=== PATIENT | female | born 1955 | race Caucasian/White ===

== ENCOUNTER 2018-01-18 16:08 | Inpatient (IN) | payer OTHER ==
[~2018-01-18] VITALS: Ht 149.9 cm; Wt 48.5 kg
[2018-01-18 16:12] VITALS: Ht 149.9 cm; Wt 48.5 kg
[2018-01-18 17:17] LABS: BASOPHIL % 0.4 % (0-2); PLATELET COUNT 462 x10^3mcL (130-400)
[2018-01-18 17:30] LABS: CALCIUM 9.1 mg/dL (8.5-10.1); CARBON DIOXIDE 26.3 mmol/L (21-32); CHLORIDE SERUM 96 mmol/L (98-107); CREATININE SERUM 0.8 mg/dL (0.6-1.0); GFR1 > 60 mL/min; GLUCOSE SERUM 214 mg/dL (74-106); POTASSIUM SERUM 3.2 mmol/L (3.5-5.1); SODIUM SERUM 134 mmol/L (136-145)
[2018-01-18 17:43] LABS: ALBUMIN 4.1 g/dL (3.4-5.0); ALKALINE PHOSPHATASE 91 U/L (46-116); ALT/SGPT 8 U/L (14-59); AMYLASE 47 U/L (25-115); AST/SGOT 13 U/L (15-37); BILIRUBIN TOTAL 0.29 mg/dL (0.20-1.00); CHOLESTEROL 148 mg/dL (<200); HDL CHOLESTEROL 66 mg/dL (40-60); LIPASE 238 IU/L (73-393); T4(THYROXINE) 11.3 ug/dL (4.7-13.3)
[2018-01-18 18:16] LABS: UA SPECIFIC GRAVITY <=1.005 (1.005-1.035); microscopic required? YES; urine erythrocyte NEGATIVE (NEGATIVE)
[2018-01-18] MEDS ORDERED: METFORMIN HYD1000 M2 PO (18:33)
[2018-01-18] MEDS ORDERED: MICROZIDE12.5 MG PO (18:33)
[2018-01-18] MEDS ORDERED: GLU10XL PO (18:33)
[2018-01-18] MEDS ORDERED: NIFEDIPINE30 MG PO (18:34)
[2018-01-18 18:52] LABS: AMPHETAMINE QUAL UR NONE DETECTED (See below)
[2018-01-18 19:50] VITALS: BP 148/52
[2018-01-18 20:04] LABS: UA SPECIFIC GRAVITY <=1.005 (1.005-1.035); microscopic required? YES; urine erythrocyte NEGATIVE (NEGATIVE)
[2018-01-18 20:05] LABS: MAGNESIUM 2.3 mg/dL (1.8-2.4); PHOSPHOROUS 2.5 mg/dL (2.5-4.9)
[2018-01-18 20:06] LABS: CHOLESTEROL/HDL RATIO 2.3
[2018-01-18 20:11] LABS: T3 TOTAL 0.93 ng/mL
[2018-01-18 20:15] LABS: FREE T4 1.4 ng/dL (0.76-1.46); FREE THYROXINE INDEX 4.1 ug/dL (1.4-4.5); T4(THYROXINE) 11.6 ug/dL (4.7-13.3)
[2018-01-19 05:02] VITALS: BP 126/55
[2018-01-19 06:49] LABS: BASOPHIL % 0.1 % (0-2); RED CELL DISTRIBUTION WIDTH 13.8 % (11.5-14.5)
[2018-01-19 06:58] LABS: PLATELET COUNT 438 x10^3mcL (130-400)
[2018-01-19 07:34] LABS: CARBON DIOXIDE 27.5 mmol/L (21-32); CHLORIDE SERUM 100 mmol/L (98-107); CREATININE SERUM 0.6 mg/dL (0.6-1.0); GFR1 > 60 mL/min; GLUCOSE SERUM 112 mg/dL (74-106); PHOSPHOROUS 3.1 mg/dL (2.5-4.9); POTASSIUM SERUM 3.9 mmol/L (3.5-5.1); SODIUM SERUM 137 mmol/L (136-145)
[2018-01-19 09:25] VITALS: BP 141/62
[2018-01-19] MEDS ORDERED: GOOD NEIGHBOR P20 M2 PO (12:49)
[2018-01-19] MEDS ORDERED: GAS RELIEF 8080 MG PO (12:50)
[2018-01-19] MEDS ORDERED: LEVOFLOXACIN500 M1 PO ×2 (12:56→14:59)
[2018-01-19 13:16] VITALS: BP 141/62
[2018-01-19 14:20] VITALS: BP 145/62
[2018-01-19] MEDS ORDERED: MICROZIDE12.5 MG PO ×2 (15:05→15:07)
== END 2018-01-19 16:29 | disposition home or self-care (01) | DRG 243 ==
LOC: ED 16:08 → DU 18:51
PROVIDERS: Emergency Medicine; Family Medicine
DX: K21.9 Gastro-esophageal reflux disease without esophagitis (principal); N17.0 Acute kidney failure with tubular necrosis; E11.65 Type 2 diabetes mellitus with hyperglycemia; I11.9 Hypertensive heart disease without heart failure; N39.0 Urinary tract infection, site not specified; E87.6 Hypokalemia; D47.3 Essential (hemorrhagic) thrombocythemia; Z68.22 Body mass index [BMI] 22.0-22.9, adult; Z79.84 Long term (current) use of oral hypoglycemic drugs
CPT/HCPCS: 82962; 83880; 84439; 90732; J1956; J7030; Q0092

== ENCOUNTER 2018-01-20 15:57 | Emergency (ER) | payer OTHER ==
[~2018-01-20] VITALS: Ht 149.9 cm; Wt 49.0 kg
[~2018-01-20 15:57] MED LIST: GAS RELIEF 8080 MG PO; GLU10XL PO; GOOD NEIGHBOR P20 M2 PO; LEVOFLOXACIN500 M1 PO; METFORMIN HYD1000 M2 PO; MICROZIDE12.5 MG PO; NIFEDIPINE30 MG PO
[2018-01-20 16:02] VITALS: Ht 149.9 cm; Wt 49.0 kg
[2018-01-20 17:11] LABS: BASOPHIL % 0.2 % (0-2); RED CELL DISTRIBUTION WIDTH 13.7 % (11.5-14.5)
[2018-01-20 17:17] LABS: UA SPECIFIC GRAVITY <=1.005 (1.005-1.035); microscopic required? YES; urine erythrocyte NEGATIVE (NEGATIVE)
[2018-01-20 17:23] LABS: ALBUMIN 3.6 g/dL (3.4-5.0); ALKALINE PHOSPHATASE 70 U/L (46-116); ALT/SGPT 15 U/L (14-59); AST/SGOT 13 U/L (15-37); BILIRUBIN TOTAL 0.2 mg/dL (0.20-1.00); CALCIUM 8.3 mg/dL (8.5-10.1); CARBON DIOXIDE 27.1 mmol/L (21-32); CHLORIDE SERUM 100 mmol/L (98-107); CREATININE SERUM 0.6 mg/dL (0.6-1.0); GFR1 > 60 mL/min; PHOSPHOROUS 2.9 mg/dL (2.5-4.9); POTASSIUM SERUM 3.3 mmol/L (3.5-5.1); SODIUM SERUM 135 mmol/L (136-145); TOTAL PROTEIN, SERUM 7.3 g/dL (6.4-8.2)
[2018-01-20 17:24] LABS: PLATELET COUNT 418 x10^3mcL (130-400)
[2018-01-20 17:35] LABS: CHOLESTEROL 121 mg/dL (<200); HDL CHOLESTEROL 63 mg/dL (40-60)
[2018-01-20 17:36] LABS: GLUCOSE SERUM 59 mg/dL (74-106)
[2018-01-20 18:48] VITALS: BP 107/57
== END 2018-01-20 18:48 | disposition home or self-care (01) ==
LOC: ED 15:57
PROVIDERS: Emergency Medicine
DX: E16.2 Hypoglycemia, unspecified (principal); J70.5 Respiratory conditions due to smoke inhalation; I10 Essential (primary) hypertension; E78.00 Pure hypercholesterolemia, unspecified; E11.9 Type 2 diabetes mellitus without complications; Z86.73 Personal history of transient ischemic attack (TIA), and cerebral infarction without residual deficits; Z88.0 Allergy status to penicillin
CPT/HCPCS: 36415; 82962; Q0092

== ENCOUNTER 2018-01-26 18:42 | Inpatient (IN) | payer OTHER ==
[~2018-01-26] VITALS: Ht 149.9 cm; Wt 48.3 kg
[2018-01-26 18:50] VITALS: Ht 149.9 cm; Wt 48.3 kg
[2018-01-26 20:49] LABS: BASOPHIL % 0.4 % (0-2)
[2018-01-26 20:51] LABS: PLATELET COUNT 459 x10^3mcL (130-400)
[2018-01-26 20:57] LABS: ALBUMIN 3.7 g/dL (3.4-5.0); ALKALINE PHOSPHATASE 87 U/L (46-116); ALT/SGPT 20 U/L (14-59); AST/SGOT 17 U/L (15-37); BILIRUBIN TOTAL 0.3 mg/dL (0.20-1.00); CALCIUM 8.4 mg/dL (8.5-10.1); CARBON DIOXIDE 25.5 mmol/L (21-32); CHLORIDE SERUM 99 mmol/L (98-107); CREATININE SERUM 0.6 mg/dL (0.6-1.0); GFR1 > 60 mL/min; POTASSIUM SERUM 3.8 mmol/L (3.5-5.1); SODIUM SERUM 135 mmol/L (136-145); TOTAL PROTEIN, SERUM 7.6 g/dL (6.4-8.2)
[2018-01-26 20:59] LABS: GLUCOSE SERUM 42 mg/dL (74-106)
[2018-01-26] MEDS ORDERED: COZAAR100 MG PO (21:21)
[2018-01-26 21:31] LABS: UA SPECIFIC GRAVITY <=1.005 (1.005-1.035); microscopic required? YES; urine erythrocyte NEGATIVE (NEGATIVE)
[2018-01-26 22:49] VITALS: BP 155/64
[2018-01-26 23:05] LABS: UA SPECIFIC GRAVITY <=1.005 (1.005-1.035); microscopic required? YES; urine erythrocyte NEGATIVE (NEGATIVE)
[2018-01-26 23:19] LABS: CHOLESTEROL/HDL RATIO 2.5
[2018-01-26 23:25] LABS: FREE T4 1.13 ng/dL (0.76-1.46); FREE THYROXINE INDEX 3.2 ug/dL (1.4-4.5)
[2018-01-27 00:31] LABS: T3 TOTAL 1.1 ng/mL
[2018-01-27 02:14] LABS: CALCIUM 8.9 mg/dL (8.5-10.1); CARBON DIOXIDE 27.7 mmol/L (21-32); CHLORIDE SERUM 103 mmol/L (98-107); CREATININE SERUM 0.6 mg/dL (0.6-1.0); GFR1 > 60 mL/min; POTASSIUM SERUM 3.5 mmol/L (3.5-5.1); SODIUM SERUM 136 mmol/L (136-145)
[2018-01-27 02:16] LABS: GLUCOSE SERUM 54 mg/dL (74-106)
[2018-01-27 05:18] VITALS: BP 128/59
[2018-01-27 06:44] LABS: BASOPHIL % 0.3 % (0-2)
[2018-01-27 06:46] LABS: PLATELET COUNT 418 x10^3mcL (130-400)
[2018-01-27 07:26] LABS: CALCIUM 8.6 mg/dL (8.5-10.1); CARBON DIOXIDE 25.5 mmol/L (21-32); CHLORIDE SERUM 103 mmol/L (98-107); CREATININE SERUM 0.6 mg/dL (0.6-1.0); GFR1 > 60 mL/min; POTASSIUM SERUM 3.8 mmol/L (3.5-5.1); SODIUM SERUM 136 mmol/L (136-145)
[2018-01-27 07:45] LABS: GLUCOSE SERUM 55 mg/dL (74-106)
[2018-01-27 10:49] VITALS: BP 139/63
[2018-01-27 18:24] VITALS: BP 127/100
[2018-01-27 20:56] VITALS: BP 128/65
[2018-01-28 04:55] VITALS: BP 106/71
[2018-01-28 07:14] LABS: BASOPHIL % 0.4 % (0-2); RED CELL DISTRIBUTION WIDTH 13.5 % (11.5-14.5)
[2018-01-28 07:15] LABS: PLATELET COUNT 412 x10^3mcL (130-400)
[2018-01-28 07:19] LABS: CALCIUM 8.8 mg/dL (8.5-10.1); CARBON DIOXIDE 28.2 mmol/L (21-32); CHLORIDE SERUM 99 mmol/L (98-107); CREATININE SERUM 0.6 mg/dL (0.6-1.0); GFR1 > 60 mL/min; GLUCOSE SERUM 123 mg/dL (74-106); POTASSIUM SERUM 3.7 mmol/L (3.5-5.1); SODIUM SERUM 130 mmol/L (136-145)
[2018-01-28] MEDS ORDERED: LEVOTHYROXINE0.05 M2 PO (09:05)
[2018-01-28 12:51] VITALS: BP 148/68
[2018-01-28] MEDS ORDERED: NOR10 PO (15:48)
[2018-01-28] MEDS ORDERED: LIPI10 PO (15:48)
[2018-01-28] MEDS ORDERED: LEVAQUIN500 M1 PO (15:49)
[2018-01-28] MEDS ORDERED: BAY PO (15:49)
[2018-01-28 16:06] VITALS: BP 148/68
== END 2018-01-28 19:16 | disposition home or self-care (01) | DRG 282 ==
LOC: ED 18:42 → DU 21:51 → MU 21:51 → DU 22:31 → MU 22:34 → DU 01-27 00:07
PROVIDERS: Emergency Medicine; Internal Medicine
DX: K85.90 Acute pancreatitis without necrosis or infection, unspecified (principal); G92 Toxic encephalopathy; E11.649 Type 2 diabetes mellitus with hypoglycemia without coma; E11.51 Type 2 diabetes mellitus with diabetic peripheral angiopathy without gangrene; I10 Essential (primary) hypertension; N39.0 Urinary tract infection, site not specified; D47.3 Essential (hemorrhagic) thrombocythemia; E78.5 Hyperlipidemia, unspecified; Z68.21 Body mass index [BMI] 21.0-21.9, adult; Z79.84 Long term (current) use of oral hypoglycemic drugs; Z86.73 Personal history of transient ischemic attack (TIA), and cerebral infarction without residual deficits; Z91.14 Patient's other noncompliance with medication regimen; T38.3X5A Adverse effect of insulin and oral hypoglycemic [antidiabetic] drugs, initial encounter; Y92.018 Other place in single-family (private) house as the place of occurrence of the external cause; Z88.0 Allergy status to penicillin; E78.00 Pure hypercholesterolemia, unspecified; Z83.6 Family history of other diseases of the respiratory system; I70.209 Unspecified atherosclerosis of native arteries of extremities, unspecified extremity
CPT/HCPCS: 82962; 84439; J1815; J1956; J3490; J7042; Q0092

== ENCOUNTER 2018-12-09 15:15 | Emergency (ER) | payer OTHER ==
[~2018-12-09] VITALS: Ht 152.4 cm; Wt 53.5 kg
[~2018-12-09 15:15] MED LIST changes: +BAY PO; +COZAAR100 MG PO; +LEVAQUIN500 M1 PO; +LEVOTHYROXINE0.05 M2 PO; +LIPI10 PO; +NOR10 PO
[2018-12-09 15:22] VITALS: Ht 152.4 cm; Wt 53.5 kg
[2018-12-09 16:47] VITALS: BP 165/75
== END 2018-12-09 16:47 | disposition home or self-care (01) ==
LOC: ED 15:15
DX: K59.00 Constipation, unspecified (principal); I10 Essential (primary) hypertension; E11.9 Type 2 diabetes mellitus without complications; E78.00 Pure hypercholesterolemia, unspecified; Z86.73 Personal history of transient ischemic attack (TIA), and cerebral infarction without residual deficits; Z98.890 Other specified postprocedural states; Z88.0 Allergy status to penicillin
CPT/HCPCS: Q0092

== ENCOUNTER 2019-01-24 10:32 | Emergency (ER) | payer OTHER ==
[~2019-01-24] VITALS: Ht 149.9 cm; Wt 51.3 kg
[2019-01-24 11:13] VITALS: Ht 149.9 cm; Wt 51.3 kg
[2019-01-24 13:45] VITALS: BP 154/61
== END 2019-01-24 14:24 | disposition home or self-care (01) ==
LOC: ED 10:32
DX: R42 Dizziness and giddiness (principal); R51 Headache; R11.0 Nausea; I10 Essential (primary) hypertension; E11.9 Type 2 diabetes mellitus without complications; Z86.73 Personal history of transient ischemic attack (TIA), and cerebral infarction without residual deficits; Z88.0 Allergy status to penicillin
CPT/HCPCS: 82962; J1885

== ENCOUNTER 2019-02-16 17:26 | Emergency (ER) | payer OTHER ==
[~2019-02-16] VITALS: Ht 149.9 cm; Wt 50.8 kg
[2019-02-16 17:34] VITALS: Ht 149.9 cm; Wt 50.8 kg
[2019-02-16 18:13] VITALS: BP 153/43
== END 2019-02-16 18:13 | disposition home or self-care (01) ==
LOC: ED 17:26
DX: K59.00 Constipation, unspecified (principal); R11.0 Nausea; R06.00 Dyspnea, unspecified; I10 Essential (primary) hypertension; E11.9 Type 2 diabetes mellitus without complications; E78.00 Pure hypercholesterolemia, unspecified; Z98.890 Other specified postprocedural states; Z86.73 Personal history of transient ischemic attack (TIA), and cerebral infarction without residual deficits; Z88.0 Allergy status to penicillin

== ENCOUNTER 2019-02-22 01:04 | Emergency (ER) | payer OTHER ==
[~2019-02-22] VITALS: Ht 149.9 cm; Wt 50.3 kg
[2019-02-22 02:34] VITALS: BP 137/65
== END 2019-02-22 03:03 | disposition home or self-care (01) ==
LOC: ED 01:04
DX: R06.00 Dyspnea, unspecified (principal); I10 Essential (primary) hypertension; E11.9 Type 2 diabetes mellitus without complications; E78.00 Pure hypercholesterolemia, unspecified; Z98.890 Other specified postprocedural states; Z88.0 Allergy status to penicillin
CPT/HCPCS: Q0092

== ENCOUNTER 2019-03-14 19:36 | Emergency (ER) | payer OTHER ==
[~2019-03-14] VITALS: Ht 139.7 cm; Wt 46.8 kg
[2019-03-14 20:30] LABS: BASOPHIL % 0.5 % (0-2); PLATELET COUNT 362 x10^3mcL (130-400); RED CELL DISTRIBUTION WIDTH 13.6 % (11.5-14.5)
[2019-03-14 20:46] LABS: CALCIUM 8.4 mg/dL (8.5-10.1); CARBON DIOXIDE 25.3 mmol/L (21-32); CHLORIDE SERUM 96 mmol/L (98-107); CREATININE SERUM 0.8 mg/dL (0.6-1.0); GFR1 > 60 mL/min; GLUCOSE SERUM 114 mg/dL (74-106); POTASSIUM SERUM 3.4 mmol/L (3.5-5.1); SODIUM SERUM 132 mmol/L (136-145)
[2019-03-14 20:50] LABS: ALKALINE PHOSPHATASE 91 U/L (46-116); ALT/SGPT 33 U/L (14-59); AST/SGOT 14 U/L (15-37); BILIRUBIN TOTAL 0.3 mg/dL (0.20-1.00); TOTAL PROTEIN, SERUM 7.8 g/dL (6.4-8.2)
[2019-03-14 21:47] VITALS: BP 145/61
== END 2019-03-14 21:47 | disposition home or self-care (01) ==
LOC: ED 19:36
PROVIDERS: Emergency Medicine
DX: R06.02 Shortness of breath (principal); F43.20 Adjustment disorder, unspecified; R42 Dizziness and giddiness; R53.83 Other fatigue; I10 Essential (primary) hypertension; E11.9 Type 2 diabetes mellitus without complications; E78.00 Pure hypercholesterolemia, unspecified; Z98.890 Other specified postprocedural states; Z86.73 Personal history of transient ischemic attack (TIA), and cerebral infarction without residual deficits; Z88.0 Allergy status to penicillin
CPT/HCPCS: 36415; Q0092